=== PATIENT | female | born 1975 | race Caucasian/White ===

== ENCOUNTER 2017-10-30 05:17 | Inpatient (IN) | payer OTHER ==
[~2017-10-30] VITALS: Ht 149.9 cm; Wt 73.5 kg
--- NOTE | ~2017-10-30 | S ---
[facility] [place] [address] SURGICAL PATH RPT PROCEDURE Name: MAKENNA MENDOZA Room #: 358-P ADM IN M.R.#: [id number] Admission: 10/30/17 Date of : 75 Discharge: Report #: [id number] Path Case #: [id number] PATHOLOGY REPORT COLLECTION DATE: 10/30/2017 RECEIVED DATE: 10/30/2017 SUBMITTING PHYS: Dr. Vickie Huang OTHER PHYS: Doroteo Virk NP SPECIMEN(S) RECEIVED: A.Omentum B.Abdominal wall hernia sac C.Abdominal skin D.Descending colon * * * * * * * * * * * * FINAL DIAGNOSIS: A. Omentum, omentectomy: - Fibroadipose tissue with focal congestion. - There is no evidence of atypia or malignancy. B. Soft tissue, abdominal wall hernia sac, herniorrhaphy: - Saccular fibroadipose tissue consistent with hernia with fibrosis and chronic inflammation. C. Skin, abdominal skin, excision: - Mild chronic inflammation and fibrosis. - There is no evidence of atypia or malignancy. D. Segment of colon, descending colon, segmental resection: - The bowel wall reveals serosal adhesions with acute and chronic serositis and congestion. - There is no evidence of atypia or malignancy. - The surgical resection margins are viable. (SHA:; 11/03/2017) PATHOLOGIST: Maxim Hardy M.D. REPORT ELECTRONICALLY SIGNED BY: Maxim Hardy M.D. DATE/TIME: 11/03/2017 13:32 * * * * * * * * * * * * GROSS PATHOLOGY: A. The specimen is received in formalin labeled "Makenna Mendoza, omentum". Received are multiple segments of yellow-bautista omentum measuring 17.9 x 15.2 x 4.9 cm in aggregate dimensions. Sectioning reveals bright yellow, lobulated cut surfaces throughout with no grossly distinct nodules or lesions. The specimen is submitted representatively in cassette A1. B. The specimen is received in formalin labeled "Makenna Mendoza, [address] [address] SURGICAL PATH RPT PROCEDURE Name: KELLYMAKENNA Mcrae Room #: 358-P [facility] IN M.R.#: [id number] Admission: 10/30/17 Date of : 75 Discharge: Report #: [id number] Path Case #: [id number] abdominal wall and hernia sac". Received are multiple segments of yellow-bautista fibroadipose tissue with attached pink-regalado fibromembranous tissue measuring 15.8 x 14.2 x 4.2 cm in aggregate dimensions. Sectioning reveals bright yellow, lobulated cut surfaces with no grossly distinct nodules or lesions. The specimen is submitted representatively in cassette B1. C. The specimen is received in formalin labeled "Makenna Mendoza, abdominal skin". Received are two large excisions of pale bautista, grossly unremarkable skin with attached underlying fibroadipose tissue measuring 20.2 x 17.5 x 5.1 cm in aggregate dimensions. Sectioning reveals bright yellow, lobulated cut surfaces throughout with no grossly distinct nodules or lesions. The specimen is submitted representatively in cassette C1. D. The specimen is received in formalin labeled "Makenna Mendoza, descending colon". Received is a segment of colon measuring 11.5 cm in length by 2.2 cm in diameter. One margin is stapled closed and the opposite margin displays a circular segment of regalado-bautista skin measuring 4.4 x 3.5 cm with a centrally located stoma with exposed light bautista mucosa measuring 4.0 x 3.1 cm. The serosal surface is pink-bautista in appearance with a large amount of overlying adhesions. The attached pericolic fat measures up to 5.8 cm in thickness. There is also slight amount of attached omentum measuring 5.9 x 2.5 x 1.7 cm. Opening the specimen reveals white-bautista, edematous-appearing mucosa with moderate architectural folds in. No distinct nodules or lesions are noted grossly. The specimen is submitted representatively as follows: D1 logistics service representative section of stoma D2 logistics service representative section of stapled margin D3 logistics service representative cross-sections of mucosa D4 logistics service representative sections of omentum. (CAA; 11/02/2017) CLINICAL HISTORY: Ventral hernia INITIAL CPT CODE(S): A; 15149 B; 00648 C; 91396 D; 82110 Professional services performed by [employer] [facility] at [address] , [place] [address] Technical services performed by [employer] at [address] [place] [address], [address], [place] [address]. [address] [address] SURGICAL PATH RPT PROCEDURE Name: MAKENNA MENDOZA Room #: 358-P [facility] IN ..#: [id number] Admission: 10/30/17 Date of : 75 Discharge: Report #: [id number] Path Case #: [id number] [facility] [address] [address] PHONE: [phone] DIRECTOR: Guero Hernandez M.D. * * * END OF REPORT * * *
--- NOTE | ~2017-10-30 | HC ---
[facility] [place] [place] [address] CONSULTATION Name: JL MENDOZA Room #: 358-P [facility] IN ..#: [id number] Admission: 10/30/17 Attend Phys: Vickie Huang MD, Discharge: Date of : 75 Report #: [id number] THIS REPORT FOR: //name// CC: RED Huang [facility] DATE OF SERVICE: 11/02/2017 REASON FOR CONSULTATION: Tachycardia. HISTORY OF PRESENT ILLNESS: The patient is a 42-year-old female with a large ventral hernia who was admitted to the hospital a few days ago. The patient underwent surgery for incarcerated ventral hernia with repair on 10/30/2017. The patient has recovered well after surgery, and currently she is pain free. She is started on diet. During the hospitalization, the patient was noted to have tachycardia. Her heart rate has been between 100 and 130. EKG shows sinus tachycardia. The patient denies any symptoms. She has no palpitations, no chest pain, dizziness, blurry vision or other complaints. The patient is a heavy smoker and she has COPD. She states that after having surgery she required treatment with BiPAP. ABG shortly after surgery shows that pO2 was 66 and pCO2 was 54.5. Currently, the patient reports mild cough and wheezing. PAST MEDICAL HISTORY: History of colovaginal fistula, status post surgery and colostomy in 2013; history of diverticulitis; status post cholecystectomy; COPD, non-oxygen dependent; tobacco abuse; depression; bipolar disease; anxiety; GERD; restless legs syndrome and herniated lumbar spine disk. MEDICATIONS: Reviewed and documented in the patient's chart. FAMILY HISTORY: Reviewed and not pertinent to the patient's current condition. SOCIAL HISTORY: The patient has more than 20-year history of smoking. She does not drink alcohol. REVIEW OF SYSTEMS: As above in the HPI section, all others negative. PHYSICAL EXAMINATION: GENERAL: The patient is a young female who is in no apparent distress. She is alert and oriented x 3. VITAL SIGNS: Blood pressure is 106/68, heart rate is between 100 and 130, respiration is 18 to 22, temperature is 99.5 from 100.8 early this morning. [facility] [address] [place] [address] CONSULTATION Name: JL MENDOZA Room #: 358-P [facility] IN [facility]#: [id number] Admission: 10/30/17 Attend Phys: Vickie Huang MD, Discharge: Date of : 75 Report #: [id number] HEENT: Pupils are equal. Eye movements are normal. Sclerae are anicteric. NECK: Supple. The patient has no JVD. The patient has no carotid bruits. Thyromegaly is not palpated. RESPIRATORY: The patient has bilateral rhonchi and scattered wheezing. She has no crackles. CARDIOVASCULAR: The patient is tachycardic. She has no murmurs, gallops or rubs. GASTROINTESTINAL: Abdomen is soft and nondistended. Colostomy is present. The patient has post-surgical wound. MUSCULOSKELETAL: She has no edema, cyanosis or clubbing. NEUROLOGIC: Grossly intact. The patient is alert and oriented x 3. SKIN: The patient has no skin lesions. LABORATORY DATA: On metabolic profile, the patient has normal electrolytes and normal kidney function. On CBC, white count is slightly up at 11.2, which is better from 16.2 couple of days ago. Hemoglobin and hematocrit are normal. ASSESSMENT AND PLAN: A 42-year-old female who had surgery for incarcerated ventral hernia on 10/30/2017. The patient is recovering well. As noted, the patient has had tachycardia since the hospitalization. 1. Sinus tachycardia likely multifactorial including COPD and suspected chronic respiratory failure as well as current fever. We will obtain CT scan with angiography for further evaluation to rule out PE. Based on clinical examination, the patient has mild wheezes bilaterally as well as rhonchi. COPD exacerbation is also suspected. We will start the patient on antibiotics and steroids. ABG on room air is ordered. [employer] Supervisor consultation for further evaluation of tachycardia is requested. 2. Bipolar disease, anxiety and depression. Appears to be stable. Continue home medications unchanged. 3. Chronic obstructive pulmonary disease. The patient will be assessed for necessity of home oxygen before she goes home. 4. Deep venous thrombosis prophylaxis. The patient is already started on Lovenox. We will continue to follow the patient during the hospitalization. Once again, thank you very much for allowing us to participate in the care of your patient. <ELECTRONICALLY SIGNED> By: Imtiaz Stevens MD 11/04/17 0746 [id number] [id number] Imtiaz Stevens MD /nt
--- NOTE | ~2017-10-30 | O ---
[facility] [place] [address] [place] [address] OPERATIVE REPORT Name: ASHTYN MENDOZALillie Mcrae Room #: 358-P ADM IN M.R.#: [id number] Admission: 10/30/17 Attend Phys: Vickie Huang MD, Discharge: Date of : 75 Report #: [id number] THIS REPORT FOR: //name// CC: RED Huang [facility] DATE OF SERVICE: 10/30/2017 PREOPERATIVE DIAGNOSES: 1. Recurrent incisional ventral hernia about her left lower quadrant ostomy. 2. History of segmental colectomy with ostomy placement secondary to chronic recurrent rectovaginal fistulae. 3. Obesity with a body mass index of 33.65. 4. Chronic pain syndrome. POSTOPERATIVE DIAGNOSES: 1. Recurrent incisional ventral hernia about her left lower quadrant ostomy. 2. History of segmental colectomy with ostomy placement secondary to chronic recurrent rectovaginal fistulae. 3. Obesity with a body mass index of 33.65. 4. Chronic pain syndrome. 5. Marked and dense intra-abdominal adhesions. PROCEDURES PERFORMED: 1. Exploratory laparotomy. 2. Extensive lysis of adhesions lasting 185 minutes. 3. Excisional debridement of ischemic abdominal wall fascia and hernia sac. 4. Complex abdominal wall reconstruction with open repair of an incarcerated recurrent incisional ventral hernia using sandwiched biomesh. 5. Bilateral component separation with a transversus abdominis (TAR) release. 6. Segmental colectomy with new placement of a colostomy in the left lower quadrant. 7. Skin reduction surgery. 8. Adjacent tissue transfer closure of the anterior abdominal wall measuring 38 x 36 cm in dimension (1368 cm2). 9. Placement of a topical wound VAC device. 10. Modifier 22 procedure for extreme difficulty of procedure secondary to the greater than 3-hour lysis of adhesions in this obese patient that added significant difficulty to the procedure. The overall complexity of the operative procedure coupled with the total operative time being greater than 5 hours also is justification for the modifier 22 procedure. SURGEON: Vickie Huang M.D. PERFORMANCE MAKEUP ARTIST: Collin Crane DO. [address] [address] OPERATIVE REPORT Name: JL MENDOZA Room #: 358-P [facility]#: [id number] Admission: 10/30/17 Attend Phys: Vickie Huang MD, Discharge: Date of : 75 Report #: [id number] ANESTHESIA: General endotracheal anesthesia. ESTIMATED BLOOD LOSS: Minimal (less than 50 mL). COMPLICATIONS: None appreciated. SPECIMENS: All excised fascia, hernia sac and skin to pathology. INDICATIONS: The patient is a 42-year-old obese female with a longstanding history of rectovaginal fistulas for which she underwent numerous abdominal explorations and was ultimately given a Anand procedure. The patient underwent numerous attempts at flap closure of her rectovaginal fistulae unfortunately unsuccessfully. The patient has had prior suture repair of a parastomal hernia and unfortunately has developed a recurrent parastomal hernia that is extremely large with numerous loops of small bowel incarcerated within it. As such, indication was for the above-mentioned procedures today, which required takedown of her colostomy, closure of the prior ostomy site as well as creation of a new colostomy after segmental colectomy and complex abdominal wall reconstruction procedure. DESCRIPTION OF PROCEDURE: After explaining the risks, benefits and alternatives of the procedure with the patient in detail in the preoperative holding area and obtaining written consent, the patient was brought to the operating room and placed supine on the operating room table. After conducting a thorough timeout procedure verifying correct patient and procedure, the patient was given general endotracheal anesthesia. Once adequate anesthesia was obtained, her SCDs were hooked up to the pneumatic compression device and she was given a preoperative dose of antibiotics in line with the SCIP protocol. The patient's ostomy site was sewn closed with 2-0 nylon in a pursestring fashion and then her abdomen was prepped and draped in the standard surgical sterile fashion. A #10 bladed scalpel was used to create a longitudinal midline wound from subxyphoid location to the suprapubic location. Electrocautery was used to carry this down through skin and subcutaneous tissues to ensure hemostasis. Once we arrived upon the level of the fascia, the patient had obvious evidence of a small incarcerated recurrent incisional hernia about the midline containing omentum. A finger was placed in this defect and I was able to open the entirety of the midline fascial wound in a controlled fashion to prevent injury to the underlying structures. Once we had the entire fascia opened on the midline, we encountered dense intra-abdominal adhesions. I now performed a greater than 3-hour lysis of adhesions using a combination of electrocautery as well as Metzenbaum scissor dissection. Any time we were near a loop of bowel, cold dissection with the Metzenbaum scissors were undertaken to prevent injury from thermal spread. Once I had taken the entirety of the adhesions down, I was able to reduce numerous loops of small bowel, redundant colon and omentum from her large recurrent parastomal hernia. The patient's fascia and hernia sac was overtly ischemic and [facility] [address] [place] [address] OPERATIVE REPORT Name: JL MENDOZA Room #: 358-P [facility] [place] Keith#: [id number] Admission: 10/30/17 Attend Phys: Vickie Huang MD, Discharge: Date of : 75 Report #: [id number] as such I performed excisional debridement of this tissue and passed it off the field as specimen. It was quite obvious the patient was going to necessitate segmental colectomy with relocation of her ostomy site and as such I took down the colostomy at the skin level circumferentially with electrocautery and was able to pull this into the abdomen. I now utilized Jeanette clamps to elevate the fascia on each side and I proceeded to score the peritoneum approximately 0.5 cm lateral to the midline wound. I was then able to enter into the preperitoneal space and took down all of this tissue as far laterally as possible until I arrived upon the transversus abdominis muscle. This was transected allowing me into the transversus space and I carried this dissection as far laterally on either side as possible. This was repeated on the opposite side as well and now that we had performed bilateral component separation of the abdominal wall, we had significant medial mobility of the posterior fascia. At this juncture, we proceeded to evaluate the hernia defects in question. The recurrent incisional hernia at the midline wound would easily be closed upon suture repair of the midline fascial wound. The left lower quadrant recurrent incisional hernia at the paracolostomy location showed the fascial defect was only approximately 3 cm larger than it should be. I therefore elected to repair this using #1 PDS suture in standard running fashion to make it snug, but not tight to the colon as it emanated through the fascial defect. At this juncture, we now cleaned off the external fascia using electrocautery to raise large skin flaps circumferentially as well. Now that I had sewn close the parastomal hernia to where it was snug, but not tight to the colon, I now proceeded to close the peritoneum and posterior fascial layers using looped #1 PDS suture in standard running fashion. This was after copious irrigation of the intraabdominal domain that ran clear. We did proceed to run the small bowel prior to closure as well showing no evidence of serosal defects, enterotomies or injury otherwise. I now selected a piece of Strattice biologic mesh that measured 20 x 16 cm in dimension. I cut this to measure 16 x 12 cm in dimension and proceeded to anchor this in the retrorectus space using numerous sutures of 0 PDS in standard fashion. A chambers holed notch was cut out to go around the colostomy to where it was loose and would not cause stricturing from contraction. This was anchored through the anterior fascia through the mesh and back up. The patient's left lateral side was tied down at this juncture, but the right-sided sutures were tagged with hemostats at this time. I now proceeded to close the anterior fascial midline wound using looped #1 PDS suture in standard running fashion as well. Upon doing so, tension was held on the right lateral 0 PDS sutures showing that the biologic mesh was smooth and not rippled in the retrorectus space. I then tied down each of these sutures as well. I now used the remaining 8 x 16 cm piece of Strattice biologic mesh to buttress the repair anteriorly as well. A similar notch was cut out of this mesh and was anchored to the fascia using 0 PDS suture in standard fashion as well. This gave us an excellently oriented sandwiched repair of her parastomal and midline incisional hernias. I now proceeded to place two 19-British round Ramon-Haque drains in the subcutaneous space, one emanating from the left lower quadrant, the other from the right lower quadrant. These were anchored to the skin using 2-0 nylon [facility] [address] [place] [address] OPERATIVE REPORT Name: JL MENDOZA Room #: 358-P [facility] [place] Keith#: [id number] Admission: 10/30/17 Attend Phys: Vickie Huang MD, Discharge: Date of : 75 Report #: [id number] in standard fashion crossed low in the pelvis and ran up the subcutaneous gutters on either side. It was now evident that we were going to necessitate skin reduction surgery as the prior colostomy site was unsuitable. A #10 bladed scalpel was used to excise all redundant skin including the prior colostomy site. Electrocautery was used to maintain hemostasis and remove the remaining tissue and was passed off the field. It should be noted that the colon, which was significantly redundant in the subcutaneous tissue, was pulled up through the abdominal wall and transected using a SCOTT-75 mm blue load stapler at the appropriate location performing a segmental colectomy with newly placed colostomy. This was passed off the field as specimen. I now selected a new site for the colostomy, which was grasped with a Jeanette clamp. A skin defect was made and using a #10 bladed scalpel. Electrocautery was used to carry this down through skin and subcutaneous tissues until I had fully dilated the tract through the abdominal wall. A Baker clamp was placed through this defect where the stapled end of the colon was grasped and pulled through. Orientation was maintained to ensure no twisting to the colon. I now proceeded to perform an adjacent tissue transfer closure of the anterior abdominal wall to arrive at vascularized tissue overlying the midline wound. The large skin flaps were elevated and relaxing incisions were made internally along the lateral gutters, which allowed me to medially rotate vascularized pedicles of subcutaneous tissue medially. These were anchored overlying the midline wound using several sutures of 3-0 Vicryl in standard interrupted inverted fashion. I then closed the subcutaneous layer and dermis using inverted interrupted sutures of 3-0 Vicryl as well. Skin was closed with skin ciara down the midline. The stapled end of the colon was now elevated with Allis clamps and was removed with curved Faria scissors. I now matured the colostomy using three sutures of 3-0 Vicryl at the 12, 3, 6, and 9 o'clock positions to arrive at a slightly confederated colville appearance in standard Isa fashion. The mucocutaneous junction at the remaining 4 quadrants was now closed using running 3-0 Vicryl in standard fashion. Digital finger intubation of the colon showed that it was patent to a subfascial level. A Prevena topical wound VAC device was now placed in the midline wound and a sterile colostomy appliance was applied in standard fashion. At the end of the lengthy procedure all instrument, needle and sponge counts were correct. The patient tolerated the procedure without incident, was awakened in the operating room and transitioned to the recovery room in stable condition with no apparent complications. <ELECTRONICALLY SIGNED> By: Vickie Huang MD, FACS 11/02/17 0755 [id number] [id number] Vickie Huang MD, FACS /nt
--- NOTE | ~2017-10-30 | EKG ---
[address] [address] ELECTROCARDIOGRAM REPORT Name: JL MENDOZA Room #: 358- ADM IN M.R.#: [id number] Admission: 10/30/17 Attend Phys: Vickie Huang MD, Discharge: Date of : 75 Report #: [id number] THIS REPORT FOR: //name// [facility] Test Date: 2017-11-02 Test Time: 14:36:11 Pat Name: JL MENDOZA Department: Room: 358 Gender: F Pilot Control Operator: Ceasar ROSARIO : 1975 Requested By: Vickie Huang Order Number: [id number] MD: Darren Beavers Measurements Intervals [place] Rate: 122 P: 42 UT: 121 QRS: 55 QRSD: 79 T: -28 QT: 287 QTc: 409 Interpretive Statements Sinus tachycardia No significant abnormality No previous ECG available for comparison Electronically Signed On 11-03-2017 8:41:30 RACK LOADER by Darren Beavers [email or web address] <ELECTRONICALLY SIGNED> By: Darren Beavers MD, [facility] 11/03/17 0841 1436 1436 Darren Beavers MD, FACC /EPI
[~2017-10-30 05:17] MED LIST: ABILIFY 5 MG TAB5 MG PO; BACLOFEN 10MG T10 MG PO; DULOXETINE HCL30 MG PO; HYDROCODONE-AP1 EAC6 PO; MELOXICAM7.5 MG PO; MYRBETRIQ50 MG PO; NEURONTIN 300300 M1 PO; NEURONTIN 400400 M1 PO; NEXIUM20 MG PO; PROAIR HFA8.5 GM INH; REMERON15 MG PO; REQUIP0.5 MG PO; ROPINIROLE HCL2 MG PO
[2017-10-30 07:30] VITALS: BP 100/57
[2017-10-30 15:50] LABS: ABG SAMPLE TYPE ARTERIAL
[2017-10-30 15:56] LABS: BE(vivo) 0.9 mmol/L (-2 to +3); LACTATE 1.41 mmol/L (0.5-2.0); O2(CT) 18.9 mL/dL (15.0-23.0); O2Hb 90.3 % (92.0-98.0); PCO2 54.5 mmHg (35.0-45.0); PO2 66.2 mmHg (80.0-100.0); sO2 91.5 % (92.0-98.0); tCO2 29.7 mmol/L (24.0-30.0)
[2017-10-30 15:57] LABS: Pressure Support 6 cm H20; STICK SITE R.RADIAL; TIDAL VOLUME 313 ml; pH 7.329 (7.360-7.450)
[2017-10-30 19:22] VITALS: BP 121/78
[2017-10-30 23:35] VITALS: BP 130/83
[2017-10-31 03:31] VITALS: BP 123/78
[2017-10-31 06:07] LABS: ABSOLUTE NEUTROPHILS 12.4 thou/uL (1.4-8.2); BASOPHILS 0.3 % (0.0-2.0); EOSINOPHILS 0.1 % (0.0-3.0); HEMATOCRIT 40.9 % (37.0-47.0); HEMOGLOBIN 13.6 gm/dL (12.0-15.0); LYMPHOCYTES 13.5 % (24.0-44.0); MCHC 33.2 g/dL (28.0-37.0); MCV 96.4 fL (80.0-100.0); MONOCYTES 9.8 % (1.0-8.0); PLATELET COUNT 250 thou/uL (150-400); POLYS 76.3 % (36.0-66.0); RBC 4.24 mil/uL (4.20-5.00); RDW 13.7 % (10.5-14.5); WBC 16.2 thou/uL (4.0-11.0)
[2017-10-31 06:13] LABS: MANUAL DIFF NO
[2017-10-31 06:23] LABS: CALCIUM 8.8 mg/dL (8.5-10.1); CREATININE 0.6 mg/dL (0.6-1.0); POTASSIUM 4.1 mmol/L (3.5-5.1)
[2017-10-31 08:00] VITALS: BP 104/65
[2017-10-31 12:00] VITALS: BP 104/60
[2017-10-31 19:30] VITALS: BP 92/47
[2017-10-31 23:30] VITALS: BP 98/60
[2017-11-01 04:15] VITALS: BP 111/75
[2017-11-01 04:24] LABS: ABSOLUTE NEUTROPHILS 10.2 thou/uL (1.4-8.2); BASOPHILS 0.3 % (0.0-2.0); EOSINOPHILS 5.4 % (0.0-3.0); HEMATOCRIT 38.8 % (37.0-47.0); HEMOGLOBIN 12.9 gm/dL (12.0-15.0); LYMPHOCYTES 15.5 % (24.0-44.0); MCH 32.1 pg (26.0-34.0); MCHC 33.3 g/dL (28.0-37.0); MCV 96.6 fL (80.0-100.0); MONOCYTES 7.3 % (1.0-8.0); PLATELET COUNT 191 thou/uL (150-400); POLYS 71.5 % (36.0-66.0); RBC 4.02 mil/uL (4.20-5.00); RDW 13.5 % (10.5-14.5); WBC 14.3 thou/uL (4.0-11.0)
[2017-11-01 04:26] LABS: MANUAL DIFF NO
[2017-11-01 04:45] LABS: CALCIUM 8.7 mg/dL (8.5-10.1); CREATININE 0.8 mg/dL (0.6-1.0)
[2017-11-01 08:45] VITALS: BP 111/65
[2017-11-01 12:26] VITALS: BP 102/60
[2017-11-01 16:30] VITALS: BP 119/61
[2017-11-01 19:17] VITALS: BP 114/68
[2017-11-02 03:50] VITALS: BP 112/66
[2017-11-02 05:52] LABS: ABSOLUTE NEUTROPHILS 7.8 thou/uL (1.4-8.2); BASOPHILS 0.2 % (0.0-2.0); EOSINOPHILS 6.5 % (0.0-3.0); HEMATOCRIT 37.6 % (37.0-47.0); HEMOGLOBIN 12.5 gm/dL (12.0-15.0); LYMPHOCYTES 17.1 % (24.0-44.0); MCH 31.9 pg (26.0-34.0); MCHC 33.2 g/dL (28.0-37.0); MCV 96.3 fL (80.0-100.0); MONOCYTES 7.1 % (1.0-8.0); PLATELET COUNT 197 thou/uL (150-400); POLYS 69.1 % (36.0-66.0); RBC 3.91 mil/uL (4.20-5.00); RDW 13.8 % (10.5-14.5); WBC 11.2 thou/uL (4.0-11.0)
[2017-11-02 06:02] LABS: MANUAL DIFF NO
[2017-11-02 06:09] LABS: CALCIUM 9.1 mg/dL (8.5-10.1); CREATININE 0.7 mg/dL (0.6-1.0); POTASSIUM 4.1 mmol/L (3.5-5.1)
[2017-11-02 08:02] VITALS: BP 103/56
[2017-11-02 12:19] VITALS: BP 106/68
[2017-11-02 15:56] VITALS: BP 99/64
[2017-11-02 16:28] LABS: ABG SAMPLE TYPE ARTERIAL; BE(vivo) 2.7 mmol/L (-2 to +3); HCO3 26.8 mmol/L (22.0-26.0); LACTATE 1.01 mmol/L (0.5-2.0); O2(CT) 16.4 mL/dL (15.0-23.0); O2Hb 91.3 % (92.0-98.0); PCO2 39.5 mmHg (35.0-45.0); PO2 58.6 mmHg (80.0-100.0); pH 7.449 (7.360-7.450); sO2 91.6 % (92.0-98.0)
[2017-11-02 16:30] LABS: STICK SITE R.RADIAL
[2017-11-02 20:10] VITALS: BP 84/51
[2017-11-03 04:22] VITALS: BP 86/50
[2017-11-03 06:36] LABS: ABSOLUTE NEUTROPHILS 7.1 thou/uL (1.4-8.2); BASOPHILS 0.2 % (0.0-2.0); EOSINOPHILS 0.1 % (0.0-3.0); HEMATOCRIT 36.7 % (37.0-47.0); HEMOGLOBIN 12.2 gm/dL (12.0-15.0); LYMPHOCYTES 13.7 % (24.0-44.0); MCH 31.7 pg (26.0-34.0); MCHC 33.2 g/dL (28.0-37.0); MCV 95.6 fL (80.0-100.0); MONOCYTES 5.4 % (1.0-8.0); PLATELET COUNT 232 thou/uL (150-400); POLYS 80.6 % (36.0-66.0); RBC 3.84 mil/uL (4.20-5.00); RDW 13.5 % (10.5-14.5); WBC 8.8 thou/uL (4.0-11.0)
[2017-11-03 06:44] LABS: MANUAL DIFF NO
[2017-11-03 06:49] LABS: CALCIUM 9.6 mg/dL (8.5-10.1); CREATININE 0.6 mg/dL (0.6-1.0); POTASSIUM 4.1 mmol/L (3.5-5.1); TOTAL BILIRUBIN 0.4 mg/dL (<0.1-1.0); TOTAL PROTEIN 7.1 g/dL (6.4-8.2)
[2017-11-03 08:11] VITALS: BP 133/68
[2017-11-03 11:45] VITALS: BP 111/73
[2017-11-03 16:50] VITALS: BP 111/66
[2017-11-03 19:00] VITALS: BP 106/64
[2017-11-04 03:32] VITALS: BP 104/69
[2017-11-04 07:21] VITALS: BP 95/60
[2017-11-04] MEDS ORDERED: LEVAQUIN 750 M750 MG PO (08:55)
[2017-11-04] MEDS ORDERED: NICOTINE TRANSD21 M1 TRANSDERM (08:56)
[2017-11-04] MEDS ORDERED: DUONEB 2.5-0.5 M3 ML INH (08:58)
[2017-11-04 09:56] VITALS: BP 95/60
== END 2017-11-04 11:40 | disposition home health service (06) | DRG 330 ==
LOC: TBA 05:17 → 3W 05:17 → PRE 08:46 → 3W 18:12
PROVIDERS: Internal Medicine Endocrinology, Diabetes & Metabolism; Surgery
DX: K43.0 Incisional hernia with obstruction, without gangrene (principal); J44.1 Chronic obstructive pulmonary disease with (acute) exacerbation; F31.9 Bipolar disorder, unspecified; F41.9 Anxiety disorder, unspecified; K21.9 Gastro-esophageal reflux disease without esophagitis; G25.81 Restless legs syndrome; R00.0 Tachycardia, unspecified; E66.9 Obesity, unspecified; G89.4 Chronic pain syndrome; K66.0 Peritoneal adhesions (postprocedural) (postinfection); F12.90 Cannabis use, unspecified, uncomplicated; F17.210 Nicotine dependence, cigarettes, uncomplicated; Z93.3 Colostomy status; Z90.49 Acquired absence of other specified parts of digestive tract; Z71.6 Tobacco abuse counseling; Z68.32 Body mass index [BMI] 32.0-32.9, adult; Z88.0 Allergy status to penicillin; Z91.040 Latex allergy status; Z88.6 Allergy status to analgesic agent; Z79.899 Other long term (current) drug therapy; Z82.49 Family history of ischemic heart disease and other diseases of the circulatory system; Z81.8 Family history of other mental and behavioral disorders; Z82.62 Family history of osteoporosis
CPT/HCPCS: 10779; 50010; 50093; 50101; 50331; 50386; 50455; 50953; 51412; 51712; 54118; 54124; 56524; 56525; 56526; 56527; 56530; 57092; 62110; 62900; 65002; 70005

== ENCOUNTER → 2017-12-08 | Outpatient (CLI) | payer OTHER ==
[~2017-12-08] MED LIST changes: +DOXYCYCLINE HYC50 MG PO; +DUONEB 2.5-0.5 M3 ML INH; +HYDROCODON-ACE1 EAC8 PO; +LEVAQUIN 750 M750 MG PO; +NICOTINE TRANSD21 M1 TRANSDERM; +SLEEP AID25 MG PO; +ZYVOX600 MG PO
--- NOTE | ~2017-12-08 | P ---
[facility] [place] [address] PROCEDURE REPORT Name: JL MENDOZA Room #: [facility].#: [id number] Admission: Attend Phys: Juan Rees MD Discharge: Date of : 75 Report #: [id number] THIS REPORT FOR: //name// CC: Juan MUIR DATE OF SERVICE: 11/25/2017 PERSONAL PHYSICIAN: Vickie Huang MD CHIEF COMPLAINT: Abdominal wall wound with drainage. HISTORY OF PRESENT ILLNESS: This is a 42-year-old white female who is status post abdominal wall reconstruction secondary ventral hernia who presented Dr. Huang's office today for evaluation of early dehiscence of the abdominal wall wound and persistent abdominal wall wound drainage. I was asked to see the patient for possible seroma. The patient denies fevers or chills. The patient was seen by her primary care physician in [facility] and started on Keflex yesterday. The patient denies nausea, vomiting. Does have a colostomy. PREPROCEDURE DIAGNOSES: 1. Surgical wound abdominal wall with underlying seroma. 2. Status post abdominal wall reconstruction secondary to ventral hernia. 3. History of tobaccoism. POSTPROCEDURE DIAGNOSES: 1. Surgical wound abdominal wall with underlying seroma. 2. Status post abdominal wall reconstruction secondary to ventral hernia. 3. History of tobaccoism. DESCRIPTION OF PROCEDURE: After verbal consent was obtained, timeout was taken. The patient had the abdominal wall incision opened using the #10 blade. This was taken down through the subcutaneous tissue down to the biologic mesh. There was a copious amount of brownish serous fluid that was released from the seroma. No anesthesia was used prior to the procedure. The incision line, already the nerves have been cut prior to the previous surgery and the patient had no associated pain with this. Once the seroma had fully been drained and the wound was then washed with Vashe cleansing solution. The wound was explored for any other pockets of which none were found. The wound was then packed with Vashe moistened Kerlix and covered with an ABD. Post-procedure measurements were 14.0 x 3.5 x 7.0 cm. After the procedure, I spoke with the patient and her significant other and stated at this point in time, I think she is a good candidate to have a wound VAC placed. I did write an order for [facility] wound VAC to be ordered under my care. The patient will follow back up in my office in 10-14 days. Home health nurses already seeing the [address] [address] PROCEDURE REPORT Name: JL MENDOZA Room #: [facility]#: [id number] Admission: Attend Phys: Juan Rees MD Discharge: Date of : 75 Report #: [id number] patient through [facility]. I have written orders for the home health nurses to start the wound VAC tomorrow and leave this packing in for the next 24 hours. PROCEDURE PERFORMED: Surgical evacuation of seroma. <ELECTRONICALLY SIGNED> By: Juan Rees MD 11/30/17 1336 1305 0030 Juan Rees MD /nt
== END ==
LOC: HYPER 11-25 16:35
DX: T81.31XA Disruption of external operation (surgical) wound, not elsewhere classified, initial encounter (principal); K43.5 Parastomal hernia without obstruction or gangrene; M19.90 Unspecified osteoarthritis, unspecified site; J44.9 Chronic obstructive pulmonary disease, unspecified; F32.9 Major depressive disorder, single episode, unspecified; F41.9 Anxiety disorder, unspecified; F17.200 Nicotine dependence, unspecified, uncomplicated; Z93.3 Colostomy status; Y92.89 Other specified places as the place of occurrence of the external cause; Y83.8 Other surgical procedures as the cause of abnormal reaction of the patient, or of later complication, without mention of misadventure at the time of the procedure

== ENCOUNTER → 2017-12-24 | Outpatient (CLI) | payer OTHER | LOC: HYPER 12-16 06:45 | DX: T81.89XD Other complications of procedures, not elsewhere classified, subsequent encounter (principal); J44.9 Chronic obstructive pulmonary disease, unspecified; M19.90 Unspecified osteoarthritis, unspecified site; K21.9 Gastro-esophageal reflux disease without esophagitis; F17.200 Nicotine dependence, unspecified, uncomplicated; F32.9 Major depressive disorder, single episode, unspecified; F41.9 Anxiety disorder, unspecified; Z90.49 Acquired absence of other specified parts of digestive tract; Y83.8 Other surgical procedures as the cause of abnormal reaction of the patient, or of later complication, without mention of misadventure at the time of the procedure ==

== ENCOUNTER 2017-12-27 21:57 | Inpatient (IN) | payer OTHER ==
[~2017-12-27] VITALS: Ht 149.9 cm; Wt 74.7 kg
--- NOTE | ~2017-12-27 | HC ---
[facility] [place] [address] CONSULTATION Name: JL MENDOZA Clementina Room #: 433-I ADM IN ..#: [id number] Admission: 12/27/17 Attend Phys: New Garcia MD Discharge: Date of : 75 Report #: [id number] THIS REPORT FOR: //name// CC: FAM unknown New Garcia DATE OF SERVICE: 12/28/2017 REFERRING PROVIDER: New Garcia MD REASON FOR CONSULT: Necrotic abdominal wall wound. HISTORY OF PRESENT ILLNESS: The patient is a 42-year-old obese female who is known to me as she is nearly 2 months status post complex abdominal wall reconstruction for a large recurrent parastomal hernia. The patient had done well in her immediate postoperative course, although at approximately 3 weeks postoperatively she had a less than 1 cm separation of her midline abdominal wound. Wound care was brought in consultation as an outpatient and they recommended appropriate therapies, unfortunately the patient failed to follow up on 3 subsequent occasions and ultimately presented back to the wound care clinic last week with findings of a markedly enlarged, grotesquely infected necrotic abdominal wall wound that measured greater than 10 cm in diameter, all due to the patient's absolute failure to followup and improper wound care. The plan was to proceed with outpatient debridement, unfortunately the patient had continued drainage that was foul smelling and began feeling worse yesterday and presented to the emergency room with an infected necrotic abdominal wall wound for which she has now been admitted and I am asked to evaluate. PAST MEDICAL HISTORY: Prior diverticulitis with a rectovaginal fistula, status post numerous abdominal explorations with attempted takedown of her fistula that was unsuccessful. She has had numerous hernia repairs, most recently 2 months ago with a complex abdominal wall reconstruction. She has COPD, bipolarism, depression with anxiety, GERD, restless leg syndrome, overactive bladder, prior back surgery and significant tobaccoism, having smoked 2 packs per day for 25 years, which is currently ongoing. HOME MEDICATIONS: Neurontin, Nexium, Abilify, duloxetine, baclofen, Remeron, Meloxicam, Myrbetriq, albuterol, ropinirole, Levaquin, doxylamine succinate and Beccaria. ALLERGIES: Extensive and include, ADHESIVE TAPE, CODEINE, LATEX, MORPHINE, OXYCODONE, and PENICILLIN. FAMILY HISTORY: Reviewed and noncontributory. SOCIAL HISTORY: Again, the patient smokes 2 packs per day and has done so for [facility] [address] [place] [address] CONSULTATION Name: JL MENDOZA Room #: 433-I [facility] [place] [facility]#: [id number] Admission: 12/27/17 Attend Phys: New Garcia MD Discharge: Date of : 75 Report #: [id number] 25 years and this is currently ongoing, smokes marijuana daily. Denies alcohol use. REVIEW OF SYSTEMS: A thorough 12-point review of systems is conducted and is negative as per HPI. PHYSICAL EXAMINATION: VITAL SIGNS: Temperature 98.5, pulse 86, respirations 18, blood pressure 86/46, she is 4 feet 11 inches tall and weighs 164 pounds. GENERAL: Alert and oriented, in no acute distress. HEENT: Normocephalic, atraumatic. Pupils are equal, round, and reactive to light. NECK: Supple without lymphadenopathy. Trachea midline. HEART: Regular rate and rhythm. LUNGS: Clear to auscultation bilaterally. ABDOMEN: Soft, nondistended. She does have tenderness around her necrotic wound. Her colostomy is pink, patent and functional with no palpable recurrent hernia. GENITOURINARY: Normal external female genitalia. EXTREMITIES: No clubbing, cyanosis, or edema. NEUROLOGIC: Cranial nerves 2-12 are grossly intact. PSYCHIATRIC: Normal mood and affect. SKIN AND INTEGUMENT: No other abnormal lesions or moles. LABORATORY AND X-RAY DATA: CBC shows white blood cell count of 9.8 thousand, hemoglobin 12.3, platelets 354,000. Creatinine 0.8. Liver function enzymes are normal. Albumin is extremely low at 2.8 prehydration. Urinalysis is negative. ASSESSMENT AND PLAN: This is a 42-year-old obese female with significant tobaccoism and marijuana use, who is nearly 2 months status post complex abdominal wall reconstruction for recurrent incarcerated parastomal hernia around her left lower quadrant ostomy. The patient did have a small subcentimeter separation of her midline wound 3 weeks postoperatively and unfortunately due to her noncompliance and inability to follow up with wound care, she has let this wound run out of control and is now extremely large, greater than 10 cm in diameter with overt necrosis and mild periwound erythema concerning for infection. The patient has been admitted and I am asked to evaluate and we will proceed today to the operating room for initial debridement of this wound to get it back to healthy tissue throughout. I will ask wound care to evaluate as well from ongoing postoperative wound care management, although I counseled her aggressively today on smoking cessation as well as not utilizing marijuana. [address] [address] CONSULTATION Name: JL MENDOZA Room #: 433-I ADM IN M.R.#: [id number] Admission: 12/27/17 Attend Phys: New Garcia MD Discharge: Date of : 75 Report #: [id number] I sincerely appreciate this consult. I will follow closely and leave any further recommendations in the patient's chart as appropriate. <ELECTRONICALLY SIGNED> By: Vickie Huang MD, FACS 12/28/17 1538 1040 1503 Vickie Huang MD, FACS /nt
--- NOTE | ~2017-12-27 | S ---
[facility] [place] [address] SURGICAL PATH RPT PROCEDURE Name: MAKENNA MENDOZA Room #: 433-I [facility] IN M.R.#: [id number] Admission: 12/27/17 Date of : 75 Discharge: 12/30/17 Report #: [id number] Path Case #: [id number] PATHOLOGY REPORT COLLECTION DATE: 12/28/2017 RECEIVED DATE: 12/28/2017 SUBMITTING PHYS: Dr. Vickie Huang OTHER PHYS: Dr. New Garcia SPECIMEN(S) RECEIVED: A.Necrotic abdominal wall * * * * * * * * * * * * FINAL DIAGNOSIS: "Necrotic abdominal wall", debridement: - Fibroadipose connective tissue with acute and chronic inflammation, necrosis, granulation tissue and fat necrosis. (CLW:pit; 12/30/2017) PATHOLOGIST: Alanna Reddy M.D. REPORT ELECTRONICALLY SIGNED BY: Alanna Reddy M.D. DATE/TIME: 12/30/2017 18:10 * * * * * * * * * * * * GROSS PATHOLOGY: The specimen is received in formalin labeled "Makenna Mendoza, necrotic abdominal wall". Received is a segment of necrotic-appearing yellow-bautista fibroadipose tissue with attached regalado-brown possible necrotic skin measuring 10.8 x 3.9 x 4.4 cm in greatest dimensions. The specimen is submitted representatively in cassette A1. (CAA; 12/29/2017) CLINICAL HISTORY: Abdominal wound INITIAL CPT CODE(S): A; 17229 Professional services performed by [facility] at [facility] [address] [place] [address] Technical services performed by [facility] at [address] [place] [id number]. [facility] [address] [place] [address] SURGICAL PATH RPT PROCEDURE Name: MAKNENA MENDOZA Room #: 433-I DIS IN M.R.#: [id number] Admission: 12/27/17 Date of : 75 Discharge: 12/30/17 Report #: [id number] Path Case #: [id number] [facility] [address] [address] PHONE: [phone] DIRECTOR: Guero Hernandez M.D. * * * END OF REPORT * * *
--- NOTE | ~2017-12-27 | HC ---
[facility] [place] [address] CONSULTATION Name: JL MENDOZA Room #: 433-I [facility].#: [id number] Admission: 12/27/17 Attend Phys: New Garcia MD Discharge: 12/30/17 Date of : 75 Report #: [id number] THIS REPORT FOR: //name// CC: FAM unknown New Garcia DATE OF SERVICE: 12/30/2017 CHIEF COMPLAINT: Surgical wound abdominal wall. HISTORY OF PRESENT ILLNESS: This is a 42-year-old female patient known to our service, who is 2 months status post abdominal wall reconstruction for recurrent peristomal hernia. She has had a colonoscopy of her left abdomen. She developed tissue necrosis with purulent drainage and she was taken to the operating room for debridement. I have been asked to see her with regard to ongoing wound care. PAST MEDICAL HISTORY: Diverticulitis, rectovaginal fistula, status post diverting colostomy, restless leg syndrome, back surgery, overactive bladder. ALLERGIES: ADHESIVE TAPE, CODEINE, LATEX, MORPHINE, OXYCODONE, PENICILLIN. MEDICATIONS: Include Levaquin, doxycycline, vancomycin. SOCIAL HISTORY: Positive for cigarette and marijuana use. No alcohol use. REVIEW OF SYSTEMS: CONSTITUTIONAL: Denies fever, chills, weight loss. NEUROLOGICAL: The patient denies focal weakness, numbness, tingling. EYES: The patient denies any visual changes, redness or drainage. ENT: The patient denies earache, nasal drainage, sore throat. CARDIOVASCULAR: The patient denies chest pain, palpitations, diaphoresis. PULMONARY: The patient denies cough or shortness of breath. GASTROINTESTINAL: The patient denies nausea. Notes the abdominal wall surgical wound and colostomy. Other systems in a 14-point review of systems are negative. PHYSICAL EXAMINATION: VITAL SIGNS: At this time include pulse rate 67, temperature 98.2, respiration rate 17, blood pressure 117/88. GENERAL: This is a chronically ill-appearing female patient who appears to be in minimal distress. HEENT: Head normocephalic. Nose and throat clear. NECK: Supple. LUNGS: Clear. HEART: . [facility] [address] [place] [address] CONSULTATION Name: JL MENDOZA [facility] [id number] Admission: 12/27/17 Attend Phys: New Garcia MD Discharge: 12/30/17 Date of : 75 Report #: [id number] ABDOMEN: Soft, bowel sounds present. There is a large surgical wound in the midline of the abdominal wall. It is relatively clean and granulating with a small amount of exposed fat along the wall of the wound. She has colostomy in the left lower quadrant, appears to be functioning. NEUROLOGIC: The patient is alert, oriented and appropriate. Moving all 4 extremities. LABORATORY DATA: Includes sodium 145, potassium 3.7, chloride 109, CO2 29, BUN 17, creatinine 0.7. Albumin is 2.4. White blood cell count 8.2 with a hemoglobin of 10.9; hematocrit of 33.7; platelet count 311,000. CLINICAL IMPRESSION: 1. Surgical wound abdominal wall. 2. Left lower quadrant colostomy. RECOMMENDATIONS: We will continue with the wound VAC to the midline abdominal wall. She will need further followup in the clinic. If she is being discharged this week, we will see her again next week in the clinic for continued followup. The importance of aggressive nutritional support was stressed with her. The patient is agreeable to current plan. I appreciate being asked to see her in consultation. <ELECTRONICALLY SIGNED> By: Giancarlo Wong MD 12/31/17 0752 [id number] Giancarlo Wong MD /nt
--- NOTE | ~2017-12-27 | O ---
[facility] [place] [place] [address] OPERATIVE REPORT Name: JL MENDOZA Room #: 433-I [facility] IN ..#: [id number] Admission: 12/27/17 Attend Phys: New Garcia MD Discharge: Date of : 75 Report #: [id number] THIS REPORT FOR: //name// CC: FAM unknown New Garcia DATE OF SERVICE: 12/28/2017 PREOPERATIVE DIAGNOSES: 1. Nonhealing abdominal wall wound with necrosis. 2. Significant tobaccoism. 3. Marijuana use daily. 4. Medication and treatment noncompliance. 5. Obesity with a BMI of greater than 33. 6. Colostomy status. 7. Protein-calorie malnutrition. POSTOPERATIVE DIAGNOSES: 1. Nonhealing abdominal wall wound with necrosis. 2. Significant tobaccoism. 3. Marijuana use daily. 4. Medication and treatment noncompliance. 5. Obesity with a BMI of greater than 33. 6. Colostomy status. 7. Protein-calorie malnutrition. PROCEDURES PERFORMED: 1. Excisional debridement of skin, subcutaneous tissue and muscle/fascia from her nonhealing necrotic abdominal wall wound ultimately measuring 15 x 15 cm in dimension (225 square cm). Preoperative wound measurements were 12 x 14 cm in dimension with overt periwound necrosis. 2. Placement of a negative pressure wound VAC device. SURGEON: Vickie Huang M.D. CHIEF OPERATIONS OFFICER: RAJ Whitfield. ANESTHESIA: General endotracheal anesthesia. ESTIMATED BLOOD LOSS: Minimal (less than 5 mL). COMPLICATIONS: None appreciated. SPECIMENS: All excised tissue to pathology. INDICATIONS: The patient is a 42-year-old female with obesity and [address] [address] OPERATIVE REPORT Name: JL MENDOZA Room #: 433-I [facility] IN [facility].#: [id number] Admission: 12/27/17 Attend Phys: New Garcia MD Discharge: Date of : 75 Report #: [id number] significant recurrent tobaccoism who underwent a complex abdominal wall reconstruction procedure nearly 2 months ago for repair of a recurrent parastomal hernia around her colostomy in the left lower quadrant. The patient developed a small subcentimeter opening to her midline wound approximately 3 weeks postoperatively that has been treated with aggressive local wound care. Unfortunately, the patient continues to smoke 2 packs per day and has failed to follow up with her appropriate wound care appointments and left packing in place for an exceedingly long period of time and has now had the wound worsened to the point of overt periwound necrosis, which was seen on her wound care appointment last when she finally presented to the Wound Care Clinic as an outpatient. Unfortunately, the patient's wound was causing such significant pain that she presented to the emergency room yesterday where she was admitted for this nonhealing wound with periwound necrosis and erythema and infected necrotic wound as well as pain control and indication was for the above-mentioned procedures today. DESCRIPTION OF PROCEDURE: After explaining the risks, benefits and alternatives of the procedure with the patient in detail in the preoperative holding area and obtaining written consent, the patient was brought to the operating room and placed supine on the operating room table. After conducting a thorough timeout procedure verifying correct patient and procedure, the patient was given general endotracheal anesthesia. Once adequate anesthesia was obtained, her SCDs were hooked up to pneumatic compression device. She was already on an inpatient regimen of IV antibiotic therapy, which is all in line with the SCIP protocol. The patient's ostomy site was covered with sterile 4 x 4s and Ioban after prepping and draping circumferential around the ostomy. The entire abdominal wall wound was now sterilely prepped and draped in standard surgical sterile fashion. Electrocautery was now used to circumferentially debride all nonviable skin, subcutaneous tissue and muscle/fascia from the entirety of the nonhealing necrotic abdominal wall wound. There was significant fibrinous exudate throughout the wound as well, for which Misonix ultrasonic debridement was now undertaken to arrive back at healthy vascularized beefy red tissue throughout the entirety of the wound. There was no palpable evidence of recurrent herniation either down the midline, or in a parastomal location. The patient's ostomy was pink, patent and has been functional without issue. As the wound is now clean, we elected to immediately place a negative pressure wound VAC device today. There was scant tunneling to the right lateral aspect of the wound and as such, white GranuFoam was placed in the bed of the wound and was covered with silver foam dressing. The occlusive Tegaderms were then placed over top with a hole cut out the middle and the suction apparatus was applied in standard fashion. The wound VAC was then activated to negative 125 mmHg pressure, and we had no evidence of a leak and it brought the wound together nicely. A sterile ostomy appliance was then applied. At the end of the procedure, all instrument, needle and sponge counts were correct. The patient tolerated the procedure [address] [address] OPERATIVE REPORT Name: JL MENDOZA Room #: 433-I [facility] IN M.R.#: [id number] Admission: 12/27/17 Attend Phys: New Garcia MD Discharge: Date of : 75 Report #: [id number] without incident, was awakened in the operating room and transitioned to the recovery room in stable condition with no apparent complications. <ELECTRONICALLY SIGNED> By: Vickie Huang MD, FACS 12/28/17 1538 1304 1347 Vickie Huang MD, FACS /nt
[~2017-12-27 21:57] MED LIST changes: -DOXYCYCLINE HYC50 MG PO; -ZYVOX600 MG PO
[2017-12-27 22:01] VITALS: BP 112/65
[2017-12-27 22:50] LABS: URINE BILIRUBIN NEGATIVE (Negative); URINE BLOOD TRACE (Negative); URINE CLARITY CLEAR; URINE COLOR YELLOW; URINE GLUCOSE-RANDOM* NEGATIVE (Negative); URINE KETONES NEGATIVE (Negative); URINE LEUKOCYTES-REFLEX NEGATIVE (Negative); URINE NITRITE-REFLEX NEGATIVE (Negative); URINE PROTEIN (DIPSTICK) NEGATIVE (Negative); URINE UROBILINOGEN 0.2 E.U./dl (0.2-1.0)
[2017-12-27 22:58] LABS: HEMOGLOBIN 12.3 gm/dL (12.0-15.0); MCH 29.9 pg (26.0-34.0); MCHC 33.3 g/dL (28.0-37.0); MCV 89.9 fL (80.0-100.0); PLATELET COUNT 354 thou/uL (150-400); RBC 4.12 mil/uL (4.20-5.00); RDW 15.3 % (10.5-14.5); WBC 9.8 thou/uL (4.0-11.0)
[2017-12-27 23:00] LABS: CALCIUM 9.6 mg/dL (8.5-10.1); CREATININE 0.8 mg/dL (0.6-1.0); POTASSIUM 3.9 mmol/L (3.5-5.1)
[2017-12-27 23:05] LABS: ALBUMIN 2.8 g/dL (3.4-5.0); TOTAL BILIRUBIN 0.2 mg/dL (<0.1-1.0); TOTAL PROTEIN 7.6 g/dL (6.4-8.2)
[2017-12-27 23:21] VITALS: BP 112/65
[2017-12-27 23:26] VITALS: BP 104/62
[2017-12-27 23:39] LABS: ABSOLUTE NEUTROPHILS 5.2 thou/uL (1.4-8.2); ANISOCYTOSIS SLIGHT
[2017-12-27 23:40] VITALS: BP 110/66
[2017-12-28] VITALS (13 sets, daily range): BP systolic 84–113; BP diastolic 43–76
[2017-12-29 05:05] VITALS: BP 101/48
[2017-12-29 06:07] LABS: HEMATOCRIT 34.7 % (37.0-47.0); HEMOGLOBIN 11.4 gm/dL (12.0-15.0); MCH 29.7 pg (26.0-34.0); MCHC 32.9 g/dL (28.0-37.0); MCV 90.2 fL (80.0-100.0); RBC 3.84 mil/uL (4.20-5.00); RDW 14.4 % (10.5-14.5); WBC 8.3 thou/uL (4.0-11.0)
[2017-12-29 06:19] LABS: ALBUMIN 2.4 g/dL (3.4-5.0); CALCIUM 9.6 mg/dL (8.5-10.1); CREATININE 0.6 mg/dL (0.6-1.0); POTASSIUM 3.9 mmol/L (3.5-5.1); TOTAL BILIRUBIN 0.3 mg/dL (<0.1-1.0); TOTAL PROTEIN 6.8 g/dL (6.4-8.2)
[2017-12-29 08:00] VITALS: BP 107/63
[2017-12-29 16:00] VITALS: BP 108/73
[2017-12-29 21:15] VITALS: BP 96/51
[2017-12-29 23:55] VITALS: BP 83/47
[2017-12-30 05:08] VITALS: BP 109/64
[2017-12-30 06:46] LABS: HEMATOCRIT 33.7 % (37.0-47.0); HEMOGLOBIN 10.9 gm/dL (12.0-15.0); MCH 29.6 pg (26.0-34.0); MCHC 32.2 g/dL (28.0-37.0); MCV 91.9 fL (80.0-100.0); RBC 3.67 mil/uL (4.20-5.00); RDW 14.9 % (10.5-14.5); WBC 8.2 thou/uL (4.0-11.0)
[2017-12-30 07:01] LABS: CALCIUM 8.9 mg/dL (8.5-10.1); CREATININE 0.7 mg/dL (0.6-1.0); POTASSIUM 3.7 mmol/L (3.5-5.1)
[2017-12-30 07:20] VITALS: BP 117/88
[2017-12-30] MEDS ORDERED: ZYVOX600 MG PO (11:58)
[2017-12-30] MEDS ORDERED: LEVAQUIN 750 M750 MG PO ×2 (11:59→12:38)
[2017-12-30 12:06] VITALS: BP 117/88
[2017-12-30 12:25] VITALS: BP 117/88
[2017-12-30] MEDS ORDERED: DOXYCYCLINE HYC50 MG PO (12:38)
== END 2017-12-30 13:39 | disposition home health service (06) | DRG 856 ==
LOC: ER 21:57 → 4S 23:19 → EROBS 23:19 → 4S 12-28 00:04 → ENTRNSPT 12-30 13:18 → EDTRNSPTSTS 12-30 13:24 → 4S 12-30 13:39
PROVIDERS: Emergency Medicine; Hospitalist; Surgery
PROC: 0KBK0ZZ Excision of Right Abdomen Muscle, Open Approach (ICD-10-PCS; principal; 2017-12-28)
DX: T81.4XXA Infection following a procedure, initial encounter (principal); E43 Unspecified severe protein-calorie malnutrition; T81.31XA Disruption of external operation (surgical) wound, not elsewhere classified, initial encounter; K21.9 Gastro-esophageal reflux disease without esophagitis; F41.9 Anxiety disorder, unspecified; G25.81 Restless legs syndrome; J44.9 Chronic obstructive pulmonary disease, unspecified; F17.210 Nicotine dependence, cigarettes, uncomplicated; E66.9 Obesity, unspecified; F31.9 Bipolar disorder, unspecified; Z90.49 Acquired absence of other specified parts of digestive tract; Z68.33 Body mass index [BMI] 33.0-33.9, adult; Z79.899 Other long term (current) drug therapy; Z88.5 Allergy status to narcotic agent; Z88.0 Allergy status to penicillin; Z88.8 Allergy status to other drugs, medicaments and biological substances; Z91.040 Latex allergy status; Z93.3 Colostomy status; Z91.14 Patient's other noncompliance with medication regimen; Y83.8 Other surgical procedures as the cause of abnormal reaction of the patient, or of later complication, without mention of misadventure at the time of the procedure; Y92.89 Other specified places as the place of occurrence of the external cause
CPT/HCPCS: 10195; 50010; 50101; 50382; 50386; 50403; 50970; 53353; 53354; 62110; 62900; 70005

== ENCOUNTER → 2018-01-11 | Outpatient (CLI) | payer OTHER ==
[~2018-01-11] MED LIST changes: +DOXYCYCLINE HYC50 MG PO; +ZYVOX600 MG PO
== END ==
LOC: HYPER 12-21 08:44
DX: T81.31XD Disruption of external operation (surgical) wound, not elsewhere classified, subsequent encounter (principal); M19.90 Unspecified osteoarthritis, unspecified site; K43.5 Parastomal hernia without obstruction or gangrene; K21.9 Gastro-esophageal reflux disease without esophagitis; J44.9 Chronic obstructive pulmonary disease, unspecified; F41.9 Anxiety disorder, unspecified; F32.9 Major depressive disorder, single episode, unspecified; F17.200 Nicotine dependence, unspecified, uncomplicated; Y83.8 Other surgical procedures as the cause of abnormal reaction of the patient, or of later complication, without mention of misadventure at the time of the procedure

== ENCOUNTER → 2018-01-26 | Outpatient (CLI) | payer OTHER | LOC: HYPER 06:51 | DX: T81.31XD Disruption of external operation (surgical) wound, not elsewhere classified, subsequent encounter (principal); K43.5 Parastomal hernia without obstruction or gangrene; M19.90 Unspecified osteoarthritis, unspecified site; K21.9 Gastro-esophageal reflux disease without esophagitis; J44.9 Chronic obstructive pulmonary disease, unspecified; F17.200 Nicotine dependence, unspecified, uncomplicated; Z93.3 Colostomy status; F41.9 Anxiety disorder, unspecified; F32.9 Major depressive disorder, single episode, unspecified; Y83.8 Other surgical procedures as the cause of abnormal reaction of the patient, or of later complication, without mention of misadventure at the time of the procedure ==

== ENCOUNTER → 2018-02-26 | Outpatient (CLI) | payer OTHER | LOC: HYPER 02-17 06:53 | DX: T81.31XD Disruption of external operation (surgical) wound, not elsewhere classified, subsequent encounter (principal); K21.9 Gastro-esophageal reflux disease without esophagitis; K43.5 Parastomal hernia without obstruction or gangrene; M19.90 Unspecified osteoarthritis, unspecified site; J44.9 Chronic obstructive pulmonary disease, unspecified; F32.9 Major depressive disorder, single episode, unspecified; F41.9 Anxiety disorder, unspecified; F17.200 Nicotine dependence, unspecified, uncomplicated; Z93.3 Colostomy status; Y83.5 Amputation of limb(s) as the cause of abnormal reaction of the patient, or of later complication, without mention of misadventure at the time of the procedure ==

== ENCOUNTER → 2018-03-17 | Outpatient (CLI) | payer OTHER | LOC: HYPER 06:45 | DX: T81.31XD Disruption of external operation (surgical) wound, not elsewhere classified, subsequent encounter (principal); K43.5 Parastomal hernia without obstruction or gangrene; F41.9 Anxiety disorder, unspecified; J44.9 Chronic obstructive pulmonary disease, unspecified; M19.90 Unspecified osteoarthritis, unspecified site; F17.210 Nicotine dependence, cigarettes, uncomplicated; Z93.3 Colostomy status; Y83.8 Other surgical procedures as the cause of abnormal reaction of the patient, or of later complication, without mention of misadventure at the time of the procedure ==

== ENCOUNTER → 2018-04-21 | Outpatient (CLI) | payer OTHER | LOC: HYPER 04-08 09:26 | DX: T81.31XD Disruption of external operation (surgical) wound, not elsewhere classified, subsequent encounter (principal); M19.90 Unspecified osteoarthritis, unspecified site; K21.9 Gastro-esophageal reflux disease without esophagitis; K43.5 Parastomal hernia without obstruction or gangrene; J44.9 Chronic obstructive pulmonary disease, unspecified; F32.9 Major depressive disorder, single episode, unspecified; F41.9 Anxiety disorder, unspecified; F17.200 Nicotine dependence, unspecified, uncomplicated; Z93.3 Colostomy status; Y83.8 Other surgical procedures as the cause of abnormal reaction of the patient, or of later complication, without mention of misadventure at the time of the procedure ==